=== PATIENT | female | born 1955 | race Hispanic/Latino ===

== ENCOUNTER 2017-12-21 08:16 | Emergency (ER) | payer OTHER ==
--- NOTE | 2017-12-21 09:40 | RAD REPORT ---
EXAM DESCRIPTION: RAD - Femur Right - 12/21/2017 9:14 am CLINICAL HISTORY: PAIN Fall COMPARISON: None FINDINGS: Right hip and right femur, multiple projections. No acute fracture or dislocation seen. No evidence of AVN.
--- NOTE | 2017-12-21 09:52 | ER ---
Nurse's Notes [facility] Name: Zaynab Winston Age: 62 yrs Sex: Female : 1955 Arrival Date: 12/21/2017 Time: 08:20 Bed 14 Private MD: Ezequiel De Los Santos E Diagnosis: Pain in right hip;Fall on same level from slipping, tripping and stumbling Presentation: 12/21 08:23 Presenting complaint: Patient states: mechanical fall from standing last night, pain in la1 right hip, pt ambulatory since injury. Denies LOC. Transition of care: patient was not received from another setting of care. Onset of symptoms was December 21, 2017. Risk Assessment: Do you want to hurt yourself or someone else? Patient reports no desire to harm self or others. Initial Sepsis Screen: Does the patient meet any 2 criteria? No. Patient's initial sepsis screen is negative. Does the patient have a suspected source of infection? No. Patient's initial sepsis screen is negative. Care prior to arrival: None. 08:23 Method Of Arrival: Wheelchair la1 08:23 Acuity: CHAS 3 la1 08:34 Mechanism of Injury: Fall from standing position. Trauma event details: Injury occurred tw2 in the [facility]. Trauma Activation: Not Applicable Physician: ED Physician; Name: ; Notified At: ; Arrived At: Physician: General Surgeon; Name: ; Notified At: ; Arrived At: Physician: Radiology; Name: ; Notified At: ; Arrived At: Physician: Respiratory; Name: ; Notified At: ; Arrived At: Physician: Lab; Name: ; Notified At: ; Arrived At: Historical: - Allergies: 08:24 PENICILLINS; la1 - PMHx: 08:24 Diabetes - NIDDM; High Cholesterol; Hypertension; la1 - Immunization history:: Adult Immunizations up to date. - Social history:: Smoking status: Patient/guardian denies using tobacco. - Immunization history: Last tetanus immunization:. - Ebola Screening: : No symptoms or risks identified at this time. Screenin:33 Abuse screen: Denies threats or abuse. Nutritional screening: No deficits noted. tw2 Tuberculosis screening: No symptoms or risk factors identified. Fall Risk None identified. Primary Survey: 08:33 A: Airway: patent. Breathing/Chest: Respiratory pattern:. Breathing/Chest: Respiratory tw2 pattern: regular, Respiratory effort: spontaneous, unlabored, Breath sounds: clear, bilaterally. Chest inspection: symmetrical rise and fall of the chest. Circulation: Heart tones present. Disability Alert. 09:23 Reassessment Airway Airway Patent Breathing/Chest Respiratory pattern Regular tw2 Respiratory effort Spontaneous Unlabored Breath sounds Clear Chest inspection Symmetrical Circulation Heart tones Present Temperature Warm Dry Disability Alert. Secondary Survey: 09:20 HEENT: Face Other appears to be abrasion noted to left cheek. Gastrointestinal: Abdomen tw2 is soft. : No signs and/or symptoms were reported regarding the genitourinary system. Musculoskeletal: Reports pain in pelvis and right hip and right low back and left low back pt is able to ambulate and weightbear. Assessment: 08:31 General: Appears in no apparent distress. well groomed, Behavior is calm, cooperative, tw2 appropriate for age. Pain: Complains of pain in left low back and right low back. Neuro: Level of Consciousness is awake, alert, obeys commands, Oriented to person, place, time, situation. Cardiovascular: Denies chest pain, shortness of breath, Heart tones S1 S2 Patient's skin is warm and dry. Respiratory: Airway is patent Respiratory effort is even, unlabored, Respiratory pattern is regular, symmetrical, Breath sounds are clear bilaterally. GI: No signs and/or symptoms were reported involving the gastrointestinal system. Abdomen is flat, Bowel sounds present X 4 quads. : No signs and/or symptoms were reported regarding the genitourinary system. EENT: No signs and/or symptoms were reported regarding the EENT system. Derm: appears to be an abrasion on left cheek bone. Musculoskeletal: Range of motion: intact in all extremities. 08:32 Reassessment: pt states she missed a step yesterday and fell backwards then fell tw2 forwards. 09:19 Reassessment: Patient appears in no apparent distress at this time. No changes from tw2 previously documented assessment. Patient and/or family updated on plan of care and expected duration. Pain level reassessed. Patient is alert, oriented x 3, equal unlabored respirations, skin warm/dry/pink. pt back from xray at this time. 10:02 Reassessment: Patient appears in no apparent distress at this time. No changes from tw2 previously documented assessment. Patient and/or family updated on plan of care and expected duration. Pain level reassessed. Patient is alert, oriented x 3, equal unlabored respirations, skin warm/dry/pink. Vital Signs: 08:24 Pulse 69; Resp 18; Temp 97.2(TE); Pulse Ox 98% on R/A; Weight 66.22 kg; Height 5 ft. 3 la1 in. (160.02 cm); Pain 8/10; 08:25 BP 197 / 74; la1 09:22 BP 186 / 79; Pulse 58; Resp 17; Pulse Ox 97% on R/A; tw2 10:02 BP 183 / 89; Pulse 77; Resp 17; Pulse Ox 99% on R/A; tw2 08:24 Body Mass Index 25.86 (66.22 kg, 160.02 cm) la1 Cale Coma Score: 08:33 Eye Response: spontaneous(4). Verbal Response: oriented(5). Motor Response: obeys tw2 commands(6). Total: 15. 09:22 Eye Response: spontaneous(4). Verbal Response: oriented(5). Motor Response: obeys tw2 commands(6). Total: 15. Trauma Score (Adult): 08:33 Eye Response: spontaneous(1); Verbal Response: oriented(1); Motor Response: obeys tw2 commands(2); Systolic BP: > 89 mm Hg(4); Respiratory Rate: 10 to 29 per min(4); Cale Score: 15; Trauma Score: 12 09:22 Eye Response: spontaneous(1); Verbal Response: oriented(1); Motor Response: obeys tw2 commands(2); Systolic BP: > 89 mm Hg(4); Respiratory Rate: 10 to 29 per min(4); Kenner Score: 15; Trauma Score: 12 ED Course: 08:20 Patient arrived in ED. mr 08:20 Ezequiel De Los Santos MD is Private Physician. mr 08:23 Triage completed. la1 08:24 Arm band placed on left wrist. la1 08:26 Janett Bustamante RN is Primary Nurse. tw2 08:30 Charl[facility] Ornelas [facility]-C [facility]. kb 08:30 Francisco Mcdonald MD is Attending Physician. kb 08:33 Placed in gown. Bed in low position. Side rails up X 1. Adult w/ patient. Cardiac tw2 monitor on. Pulse ox on. Sitter at bedside. Warm blanket given. 08:34 Patient maintains SpO2 saturation greater than 95% on room air. tw2 08:34 Thermoregulation: warm blanket given to patient. tw2 09:06 Hip Right 2 View XRAY In Process Unspecified. EDMS 09:06 Femur Right XRAY In Process Unspecified. EDMS 10:02 No provider procedures requiring assistance completed. Patient did not have IV access tw2 during this emergency room visit. Administered Medications: No medications were administered Intake: 09:22 PO: 0ml; Total: 0ml. tw2 Outcome: 09:52 Discharge ordered by . kb 10:03 Discharged to home via wheelchair, with family. tw2 10:03 Condition: stable 10:03 Patient's length of stay was not longer than 2 hours. 10:03 Discharge instructions given to patient, Instructed on discharge instructions, follow tw2 up and referral plans. Demonstrated understanding of instructions, follow-up care. 10:04 Patient left the ED. tw2 Signatures: Dispatcher [employer] EDOR Charlene Ornelas, DIOR WEINERP-Nessa Haney Carroll Huffman RN RN la1 Janett Bustamante RN RN tw2 Corrections: (The following items were deleted from the chart) 08:29 08:23 Acuity: CHAS 4 la1 la1
--- NOTE | 2017-12-21 09:52 | EDPHYS ---
Physician Documentation [facility] Name: Zaynab Winston Age: 62 yrs Sex: Female : 1955 Arrival Date: 12/21/2017 Time: 08:20 Bed 14 Private MD: Ezequiel De Los Santos E ED Physician Francisco Mcdonald HPI: 12/21 08:39 This 62 yrs old Female presents to ER via Wheelchair with complaints of Fall kb Injury. 08:39 Details of fall: The patient fell from an upright position, "getting out of car". kb Onset: The symptoms/episode began/occurred last night. Associated injuries: The patient sustained right hip and right quadriceps, painful injury. Severity of symptoms: At their worst the symptoms were mild, moderate, in the emergency department the symptoms are unchanged. The patient has not experienced similar symptoms in the past. The patient has not recently seen a physician. Pt tripped and fell when getting out of the car last night. Has been walking from couch to restroom without difficulty, but does have pain to right hip and femur. . Historical: - Allergies: 08:24 PENICILLINS; la1 - PMHx: 08:24 Diabetes - NIDDM; High Cholesterol; Hypertension; la1 - Immunization history:: Adult Immunizations up to date. - Social history:: Smoking status: Patient/guardian denies using tobacco. - Immunization history: Last tetanus immunization:. - Ebola Screening: : No symptoms or risks identified at this time. ROS: 08:37 Constitutional: Negative for fever, chills, and weight loss, Cardiovascular: Negative kb for chest pain, palpitations, and edema, Respiratory: Negative for shortness of breath, cough, wheezing, and pleuritic chest pain, Abdomen/GI: Negative for abdominal pain, nausea, vomiting, diarrhea, and constipation, Back: Negative for injury and pain, Skin: Negative for injury, rash, and discoloration, Neuro: Negative for headache, weakness, numbness, tingling, and seizure. 08:37 MS/extremity: Positive for injury or acute deformity, pain, tenderness, of the right hip and right quadriceps. Exam: 08:37 Constitutional: This is a well developed, well nourished patient who is awake, alert, kb and in no acute distress. Head/Face: Normocephalic, atraumatic. Chest/axilla: Normal chest wall appearance and motion. Nontender with no deformity. No lesions are appreciated. Cardiovascular: Regular rate and rhythm with a normal S1 and S2. No gallops, murmurs, or rubs. Normal PMI, no JVD. No pulse deficits. Respiratory: Lungs have equal breath sounds bilaterally, clear to auscultation and percussion. No rales, rhonchi or wheezes noted. No increased work of breathing, no retractions or nasal flaring. Abdomen/GI: Soft, non-tender, with normal bowel sounds. No distension or tympany. No guarding or rebound. No evidence of tenderness throughout. Skin: Warm, dry with normal turgor. Normal color with no rashes, no lesions, and no evidence of cellulitis. Neuro: Awake and alert, GCS 15, oriented to person, place, time, and situation. Cranial nerves II-XII grossly intact. Motor strength 5/5 in all extremities. Sensory grossly intact. Cerebellar exam normal. Normal gait. 08:37 Musculoskeletal/extremity: Extremities: grossly normal except: noted in the right hip: pain, tenderness, ROM: intact in all extremities, Circulation is intact in all extremities. Sensation intact. Weight bearing: able to fully bear weight, without difficulty. Vital Signs: 08:24 Pulse 69; Resp 18; Temp 97.2(TE); Pulse Ox 98% on R/A; Weight 66.22 kg; Height 5 ft. 3 la1 in. (160.02 cm); Pain 8/10; 08:25 BP 197 / 74; la1 09:22 BP 186 / 79; Pulse 58; Resp 17; Pulse Ox 97% on R/A; tw2 10:02 BP 183 / 89; Pulse 77; Resp 17; Pulse Ox 99% on R/A; tw2 08:24 Body Mass Index 25.86 (66.22 kg, 160.02 cm) la1 Cale Coma Score: 08:33 Eye Response: spontaneous(4). Verbal Response: oriented(5). Motor Response: obeys tw2 commands(6). Total: 15. 09:22 Eye Response: spontaneous(4). Verbal Response: oriented(5). Motor Response: obeys tw2 commands(6). Total: 15. Trauma Score (Adult): 08:33 Eye Response: spontaneous(1); Verbal Response: oriented(1); Motor Response: obeys tw2 commands(2); Systolic BP: > 89 mm Hg(4); Respiratory Rate: 10 to 29 per min(4); Turner Score: 15; Trauma Score: 12 09:22 Eye Response: spontaneous(1); Verbal Response: oriented(1); Motor Response: obeys tw2 commands(2); Systolic BP: > 89 mm Hg(4); Respiratory Rate: 10 to 29 per min(4); Cale Score: 15; Trauma Score: 12 MDM: 08:30 Patient medically screened. kb 08:39 Data reviewed: vital signs, nurses notes. Data interpreted: Pulse oximetry: on room air kb is 98 %. Interpretation: normal. 09:51 Counseling: I had a detailed discussion with the patient and/or guardian regarding: the kb historical points, exam findings, and any diagnostic results supporting the discharge/admit diagnosis, radiology results, the need for outpatient follow up, a family practitioner, to return to the emergency department if symptoms worsen or persist or if there are any questions or concerns that arise at home. 12/21 08:36 Order name: Hip Right 2 View XRAY kb 12/21 08:36 Order name: Femur Right XRAY; Complete Time: 09:40 kb Administered Medications: No medications were administered Disposition: 18:40 Co-signature as Attending Physician, Francisco Mcdonald MD available for consultation at ps1 all times. Disposition: 12/21/17 09:52 Discharged to Home. Impression: Pain in right hip, Fall on same level from slipping, tripping and stumbling. - Condition is Stable. - Discharge Instructions: Hip Pain. - Medication Reconciliation Form, Thank You Letter, Antibiotic Education, Prescription Opioid Use form. Signatures: Dispatcher [employer] EDVT Charlene Ornelas, YUNIORC PATHOLOGY TECHNICIAN-Carroll Carey RN RN la1 Janett Bustamante RN RN tw2 Francisco Mcdonald MD MD ps1 Corrections: (The following items were deleted from the chart) 10:04 09:52 12/21/2017 09:52 Discharged to Home. Impression: Pain in right hip; Fall on same tw2 level from slipping, tripping and stumbling. Condition is Stable. Forms are Medication Reconciliation Form, Thank You Letter, Antibiotic Education, Prescription Opioid Use. Follow up: Emergency Department; When: As needed; Reason: Worsening of condition. Follow up: Ezequiel De Los Santos; When: 2 - 3 days; Reason: Recheck today's complaints, Continuance of care, Re-evaluation by your physician. kb
--- NOTE | 2017-12-21 11:37 | RAD REPORT ---
EXAM DESCRIPTION: RAD - Hip Right 2 View - 12/21/2017 9:13 am CLINICAL HISTORY: PAIN Fall COMPARISON: None FINDINGS: Right hip and right femur, multiple projections. No acute fracture or dislocation seen. No evidence of AVN. If pain persists or progresses or the patient has difficulty with weight-bearing, MR imaging would be recommended.
== END 2017-12-21 10:04 | disposition home or self-care (01) ==
LOC: ER 08:16
DX: M25.551 Pain in right hip (principal); W18.39XA Other fall on same level, initial encounter; Y93.89 Activity, other specified; Y92.9 Unspecified place or not applicable; Z88.0 Allergy status to penicillin; I10 Essential (primary) hypertension
CPT/HCPCS: 99285

== ENCOUNTER 2018-03-13 17:37 | Emergency (ER) | payer OTHER ==
[2018-03-13] MEDS ORDERED: LABETALOL HCL 100 MG/20 ML ONE (18:18)
[2018-03-13 18:37] LABS: Absolute Lymphocytes (CBC) 1.8 K/uL (0.7-4.9); Absolute Monocytes 0.5 K/uL (0.1-1.3); Absolute Neutrophil 5.7 K/uL (1.8-8.0); Basophils % 0.4 % (0-1.3); Eosinophils % 1.2 % (0-4.4); Hematocrit 36.1 % (36.0-45.0); Lymphocytes % 21.9 % (15.3-44.8); MPV 8.3 fL (7.6-11.3); Monocytes % 5.9 % (3.3-12.3); RBC Red Blood Cell Count 4.31 M/uL (3.86-4.86)
[2018-03-13] MEDS ORDERED: ONDANSETRON 4 MG/2 ML VIAL ONE (18:37)
[2018-03-13] MEDS ORDERED: Nicardipine/NS 25 MG/250 ML KIT IV ONE (18:51)
--- NOTE | 2018-03-13 18:51 | RAD REPORT ---
EXAM DESCRIPTION: CT - Head Brain Wo Cont - 03/13/2018 6:35 pm CLINICAL HISTORY: HEADACHE Severe headache, hypertension COMPARISON: Chest Single View dated 03/13/2018 TECHNIQUE: All CT scans are performed using dose optimization technique as appropriate and may inclu de automated exposure control or mA/KV adjustment according to patient size. FINDINGS: A significant volume of subarachnoid acute hemorrhage is present in the region of the circ le Martinez and posterior fossa. Blood is seen extending and both sylvian fissures.Moderate distention of the ventricular system is present compatible with hydrocephalus. The paranasal sinuses and mastoids are clear. The calvarium is intact. IMPRESSION: Significant acute subarachnoid hemorrhage is present. Moderate hydrocephalus is noted. Findings were discussed with Dr. Deleon in the ER 6:45 p.m. 03/13/2018 by telephone.
[2018-03-13 18:52] LABS: ALT/SGPT 26 U/L (12-78); AST/SGOT 21 U/L (15-37); Albumin 3.9 g/dL (3.4-5.0); Alkaline Phosphatase 87 U/L (45-117); BUN Blood Urea Nitrogen 17 mg/dL (7-18); Bicarbonate 26 mmol/L (21-32); Bilirubin Direct < 0.1 mg/dL (0-0.2); Bilirubin Total 0.3 mg/dL (0.2-1.0); Glucose Level 181 mg/dL (74-106); NT PRO-BNP 73 pg/mL (<125); Potassium 3.5 mmol/L (3.5-5.1); Sodium Level 139 mmol/L (136-145); Troponin (Emerg Dept Use Only) < 0.02 ng/mL (0.0-0.045)
[2018-03-13] MEDS ORDERED: niMODipine 30 MG CAP PO ONE (19:02)
--- NOTE | 2018-03-13 19:10 | ER ---
Nurse's Notes [facility] Name: Zaynab Winston Age: 62 yrs Sex: Female : 1955 Arrival Date: 03/13/2018 Time: 17:41 Bed 27 Private MD: Diagnosis: Cognitive deficits following nontraumatic subarachnoid hemorrhage Presentation: 03/13 17:35 Presenting complaint: EMS states: pt states around 330pm today had a tense situation tw2 with her neighbor and she got stressed and now her blood pressure is up, originally was 240/136 upon our arrival, we gave 5mg IV Metoprolol at 1705, pt c/o headache, denies chest pain and SOB, gave 2nd dose of 5 mg IV Metoprolol at at 1726, arrival here it is 211/110, pt c/o headache and nauseousness, she vomited a total of 3 times for us, we gave 4mg Zofran IV, hx:: hypertension, diabetes. Transition of care: patient was not received from another setting of care. Onset of symptoms was March 13, 2018. Risk Assessment: Do you want to hurt yourself or someone else? Patient reports no desire to harm self or others. Initial Sepsis Screen: Does the patient meet any 2 criteria? No. Patient's initial sepsis screen is negative. Does the patient have a suspected source of infection? No. Patient's initial sepsis screen is negative. Care prior to arrival: IV initiated. 18 GA, in the left forearm, Glucose check: 246. 17:35 Method Of Arrival: EMS: [facility] tw2 17:35 Acuity: CHAS 2 ss Historical: - Allergies: 17:53 PENICILLINS; tw2 - Home Meds: 19:25 Metformin Oral [Active]; Metoprolol Tartrate Oral [Active]; losartan oral oral ss [Active]; amlodipine oral [Active]; alendronate oral oral [Active]; Levemir subcutaneous subcutaneous [Active]; - PMHx: 17:53 Diabetes - NIDDM; High Cholesterol; Hypertension; tw2 - Immunization history:: Adult Immunizations. - Social history:: Smoking status: . - Ebola Screening: : Patient denies travel to an Ebola-affected area in the 21 days before illness onset. Screenin:55 Abuse screen: Denies threats or abuse. Nutritional screening: No deficits noted. tw2 Tuberculosis screening: No symptoms or risk factors identified. Fall Risk None identified. Assessment: 17:54 General: Appears uncomfortable, Behavior is cooperative, appropriate for age. Pain: tw2 Complains of pain in "headache". Neuro: Level of Consciousness is awake, alert, obeys commands, Oriented to person, place, time, situation. Neuro: Reports headache. Cardiovascular: Denies chest pain, shortness of breath, Heart tones S1 S2 Patient's skin is warm and dry. Respiratory: Airway is patent Respiratory effort is even, unlabored, Respiratory pattern is regular, symmetrical, Breath sounds are clear bilaterally. GI: Abdomen is flat, Pt is actively vomiting Bowel sounds present X 4 quads. : No signs and/or symptoms were reported regarding the genitourinary system. EENT: No signs and/or symptoms were reported regarding the EENT system. Derm: No signs and/or symptoms reported regarding the dermatologic system. Musculoskeletal: Range of motion: intact in all extremities. 18:25 Reassessment: pt actively vomiting at this time, provider notified. tw2 19:05 Reassessment: Dr Deleon at bedside for discussion of findings and recommendations to bb daughter pt to be Life Flighted to [facility] for further evaluation and treatment. 19:15 Reassessment: pt c/o of headache Dr Deleon notified pt medicated see MAR. bb 19:27 Reassessment: pt is resting quietly, daughter at bedside, report given to Life Flight bb and Kuldeep Cleary RN at [facility]. Pt's IV intact, patent with fluids infusing. 19:36 Reassessment: [facility] crew at bedside for transport of pt. Pt is bb oriented x 4, resp unlabored, IV site intact with fluids infusing family at bedside. Vital Signs: 17:47 BP 230 / 106; Pulse 70; Resp 19; Temp 98.7(O); Pulse Ox 96% on R/A; Pain 10/10; tw2 18:25 BP 175 / 80; Pulse 71; Resp 16; Pulse Ox 96% on R/A; tw2 18:50 BP 155 / 92; Pulse 67; Resp 15; Pulse Ox 96% on R/A; tw2 19:00 BP 139 / 73; Pulse 67; Resp 23; Pulse Ox 92% on R/A; bb 19:10 BP 134 / 70; Pulse 69; Resp 24 S; Pulse Ox 92% on R/A; bb 19:20 BP 131 / 70; Pulse 68; Resp 20 S; Pulse Ox 98% on 2 lpm NC; bb 19:39 BP 144 / 66; Pulse 71; Resp 22 S; Pulse Ox 99% on 2 lpm NC; bb 17:47 Dr. Deleon notifed of pts BP and c/o headache and condition of actively vomiting. tw2 [place] Coma Score: 18:48 Eye Response: spontaneous(4). Verbal Response: oriented(5). Motor Response: obeys gs commands(6). Total: 15. 19:46 Eye Response: to voice(3). Verbal Response: oriented(5). Motor Response: obeys bb commands(6). Total: 14. ED Course: 17:41 Patient arrived in ED. tw2 17:41 Placed in gown. Bed in low position. personnel monitor on. Pulse ox on. NIBP on. Notified tw2 ED physician of vital signs. 17:41 Maintain EMS IV. Dressing intact. Good blood return noted. Site clean \\T\\ dry. Gauge \\T\\ tw 2 site: 18 g LEFT FA. 17:47 Triage completed. tw2 17:52 Janett Bustamante RN is Primary Nurse. tw2 17:53 Arm band placed on. tw2 18:03 Papi Deleon MD is Attending Physician. gs 18:39 CT Head Brain wo Cont In Process Unspecified. EDMS 18:39 Papi Deleon MD is Attending Physician. gs 19:00 Report given to KENDRA Guzman. tw2 19:05 XRAY Chest (1 view) In Process Unspecified. EDMS 19:33 No provider procedures requiring assistance completed. Patient transferred, IV remains bb in place. Administered Medications: 18:19 Drug: Labetalol 20 mg Route: IVP; Infused Over: 2 mins; Site: left forearm; tw2 18:28 Drug: Zofran 4 mg Route: IVP; Site: left forearm; tw2 19:00 Follow up: Response: No adverse reaction; Nausea is decreased tw2 18:45 Drug: niCARdipine (25mg/250ml) 5 mg/hr Route: IV; Rate: calculated rate; Site: left tw2 forearm; 18:59 Follow up: Rate change 7.5 mg/hr; at this time d/t bp 168/95 hr 67 tw2 19:47 Follow up: IV Status: Infusion continued upon transfer bb 18:55 Not Given (Duplicate Order): niMODipine 60 mg PO once; administer 1 hour before or 2 tw2 hours after meals 18:55 Drug: niMODipine 30 mg Route: PO; tw2 19:47 Follow up: Response: No adverse reaction bb 19:20 Drug: fentaNYL (PF) 25 mcg Route: IVP; Site: left forearm; bb 19:47 Follow up: Response: No adverse reaction bb Intake: Outcome: 19:09 ER care complete, transfer ordered by . gs 19:33 Instructed on the need for transfer. bb 19:45 Transferred by helicopter to [facility], Transfer form completed. X-rays sent bb w/ patient. 19:45 critical 19:48 Patient left the ED. bb Signatures: Dispatcher [employer] EDMS Megan Bolton RN RN Regina Benton RN RN Janett Bustamante RN RN tw2 Papi Deleon MD MD Corrections: (The following items were deleted from the chart) 17:53 17:47 BP 230 / 106; Pulse 70bpm; Resp 19bpm; Pulse Ox 96% RA; Pain 10/10; tw2 tw2 19:57 17:35 Acuity: CHAS 3 tw2
--- NOTE | 2018-03-13 19:10 | EDPHYS ---
Physician Documentation [facility] Name: Zaynab Winston Age: 62 yrs Sex: Female : 1955 Arrival Date: 03/13/2018 Time: 17:41 Bed 27 Private MD: ED Physician Papi Deleon HPI: 03/13 18:48 This 62 yrs old Female presents to ER via EMS with complaints of High Blood gs Pressure, Vomiting, Headache. 18:48 The patient has elevated blood pressure and discovered this at home. Onset: The gs symptoms/episode began/occurred acutely, gradually. 18:48 The patient complains of pain to the top of head and forehead. Onset: The gs symptoms/episode began/occurred acutely, suddenly. Associated signs and symptoms: Pertinent positives: vomiting, hypertension. Severity of symptoms: At its worst the pain was incapacitating, in the emergency department the pain is unchanged. The patient has not experienced similar symptoms in the past. Historical: - Allergies: 17:53 PENICILLINS; tw2 - Home Meds: 19:25 Metformin Oral [Active]; Metoprolol Tartrate Oral [Active]; losartan oral oral ss [Active]; amlodipine oral [Active]; alendronate oral oral [Active]; Levemir subcutaneous subcutaneous [Active]; - PMHx: 17:53 Diabetes - NIDDM; High Cholesterol; Hypertension; tw2 - Immunization history:: Adult Immunizations. - Social history:: Smoking status: . - Ebola Screening: : Patient denies travel to an Ebola-affected area in the 21 days before illness onset. ROS: 18:48 All other systems are negative. gs Exam: 18:48 Head/Face: Normocephalic, atraumatic. Eyes: Pupils equal round and reactive to light, gs extra-ocular motions intact. Lids and lashes normal. Conjunctiva and sclera are non-icteric and not injected. Cornea within normal limits. Periorbital areas with no swelling, redness, or edema. ENT: Nares patent. No nasal discharge, no septal abnormalities noted. Tympanic membranes are normal and external auditory canals are clear. Oropharynx with no redness, swelling, or masses, exudates, or evidence of obstruction, uvula midline. Mucous membranes moist. Neck: Trachea midline, no thyromegaly or masses palpated, and no cervical lymphadenopathy. Supple, full range of motion without nuchal rigidity, or vertebral point tenderness. No Meningismus. Chest/axilla: Normal chest wall appearance and motion. Nontender with no deformity. No lesions are appreciated. 18:48 Respiratory: Lungs have equal breath sounds bilaterally, clear to auscultation and percussion. No rales, rhonchi or wheezes noted. No increased work of breathing, no retractions or nasal flaring. Abdomen/GI: Soft, non-tender, with normal bowel sounds. No distension or tympany. No guarding or rebound. No evidence of tenderness throughout. Back: No spinal tenderness. No costovertebral tenderness. Full range of motion. Skin: Warm, dry with normal turgor. Normal color with no rashes, no lesions, and no evidence of cellulitis. MS/ Extremity: Pulses equal, no cyanosis. Neurovascular intact. Full, normal range of motion. 18:48 Constitutional: The patient appears alert, awake. 18:48 Cardiovascular: Rate: tachycardic, Rhythm: regular, Pulses: no pulse deficits are appreciated. 18:48 Neuro: Orientation: to person, place, time, situation, Cranial nerves: CN II- XII are normal as tested, Motor: moves all fours, strength is normal, Sensation: pin prick testing is normal. Vital Signs: 17:47 BP 230 / 106; Pulse 70; Resp 19; Temp 98.7(O); Pulse Ox 96% on R/A; Pain 10/10; tw2 18:25 BP 175 / 80; Pulse 71; Resp 16; Pulse Ox 96% on R/A; tw2 18:50 BP 155 / 92; Pulse 67; Resp 15; Pulse Ox 96% on R/A; tw2 19:00 BP 139 / 73; Pulse 67; Resp 23; Pulse Ox 92% on R/A; bb 19:10 BP 134 / 70; Pulse 69; Resp 24 S; Pulse Ox 92% on R/A; bb 19:20 BP 131 / 70; Pulse 68; Resp 20 S; Pulse Ox 98% on 2 lpm NC; bb 19:39 BP 144 / 66; Pulse 71; Resp 22 S; Pulse Ox 99% on 2 lpm NC; bb 17:47 Dr. Deleon notifed of pts BP and c/o headache and condition of actively vomiting. tw2 [place] Coma Score: 18:48 Eye Response: spontaneous(4). Verbal Response: oriented(5). Motor Response: obeys gs commands(6). Total: 15. 19:46 Eye Response: to voice(3). Verbal Response: oriented(5). Motor Response: obeys bb commands(6). Total: 14. MDM: 18:39 Patient medically screened. gs 18:48 Differential diagnosis: cerebral vascular accident, hypertensive headache, neoplasm, gs subarachnoid bleed. Data reviewed: vital signs, nurses notes. Counseling: I had a detailed discussion with the patient and/or guardian regarding: the historical points, exam findings, and any diagnostic results supporting the discharge/admit diagnosis. 03/13 18:04 Order name: Basic Metabolic Panel 03/13 18:04 Order name: CBC with Diff 03/13 18:04 Order name: LFT's 03/13 18:04 Order name: Magnesium 03/13 18:04 Order name: NT PRO-BNP 03/13 18:04 Order name: PT-INR 03/13 18:04 Order name: Troponin (emerg Dept Use Only) 03/13 18:04 Order name: XRAY Chest (1 view) 03/13 18:04 Order name: CT Head Brain wo Cont 03/13 18:04 Order name: EKG; Complete Time: 18:05 03/13 18:04 Order name: Cardiac monitoring; Complete Time: 18:24 03/13 18:04 Order name: EKG - Nurse/Tech; Complete Time: 18:24 03/13 18:04 Order name: IV Saline Lock; Complete Time: 18:25 03/13 18:04 Order name: Labs collected and sent; Complete Time: 18:25 03/13 18:04 Order name: O2 Per Protocol; Complete Time: 18:25 03/13 18:04 Order name: O2 Sat Monitoring; Complete Time: 18:24 Administered Medications: 18:19 Drug: Labetalol 20 mg Route: IVP; Infused Over: 2 mins; Site: left forearm; tw2 18:28 Drug: Zofran 4 mg Route: IVP; Site: left forearm; tw2 19:00 Follow up: Response: No adverse reaction; Nausea is decreased tw2 18:45 Drug: niCARdipine (25mg/250ml) 5 mg/hr Route: IV; Rate: calculated rate; Site: left tw2 forearm; 18:59 Follow up: Rate change 7.5 mg/hr; at this time d/t bp 168/95 hr 67 tw2 19:47 Follow up: IV Status: Infusion continued upon transfer bb 18:55 Not Given (Duplicate Order): niMODipine 60 mg PO once; administer 1 hour before or 2 tw2 hours after meals 18:55 Drug: niMODipine 30 mg Route: PO; tw2 19:47 Follow up: Response: No adverse reaction bb 19:20 Drug: fentaNYL (PF) 25 mcg Route: IVP; Site: left forearm; bb 19:47 Follow up: Response: No adverse reaction bb Disposition: 03/13/18 19:09 Transfer ordered to [facility]. 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 - Reason for transfer: Higher level of care. - Accepting physician is day. - Condition is Stable. - Problem is new. - Symptoms are unchanged. Critical care time excluding procedures: 18:48 Critical care time: Bedside Care: 10 minutes, Consultation: 10 minutes, Family gs Intervention: 10 minutes. Total time: 30 minutes Signatures: Dispatcher [employer] Megan Luo RN RN bb Regina Benton RN RN Janett Bustamante RN RN tw2 Papi Deleon MD MD Corrections: (The following items were deleted from the chart) 19:48 19:09 03/13/2018 19:09 Transfer ordered to [facility]. 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 Reason for transfer: Higher level of care. Accepting physician is day. Condition is Stable. Problem is new. Symptoms are unchanged. gs
[2018-03-13 19:11] LABS: Protime INR 0.97
--- NOTE | 2018-03-13 19:13 | RAD REPORT ---
EXAM DESCRIPTION: RAD - Chest Single View - 03/13/2018 7:05 pm CLINICAL HISTORY: MALAISE Chest pain. COMPARISON: No comparisons FINDINGS: Portable technique limits examination quality. Mild asymmetric interstitial pulmonary edema is present, greater on the left. The heart is upper limi t normal in size. No displaced fractures.Hardware plate is present cervical spine.
[2018-03-13] MEDS ORDERED: FENTANYL CITR 100 MCG/2 ML ONE (19:28)
--- NOTE | 2018-03-14 07:58 | EKG ---
Test Date: 2018-03-13 Test Time: 18:12:[address] Production: TANA MEASUREMENT RESULTS: Intervals: Rate: 62 CO: 154 QRSD: 88 QT: 484 QTc: 491 [place]: P: 46 CO: 154 QRS: 11 T: 74 INTERPRETIVE STATEMENTS: Normal sinus rhythm Prolonged QT Abnormal ECG No previous ECG available for comparison Electronically Signed On 03-14-18 07:58:09 ADMINISTRATIVE SERVICES DIRECTOR by Addison Barraza
[2018-03-14] MEDS ORDERED: NS 0.9% VIAL 0 ML ONE (09:57)
[2018-03-14] MEDS ORDERED: BALANCED SALT IRRIG PLAIN 500 ML BTL IRR ONE (09:58)
[2018-03-14] MEDS ORDERED: DUOVISC 1 KIT OPTH ONE (09:58)
[2018-03-14] MEDS ORDERED: EPINEPHRINE/PF 1 MG/ML AMP ONE (09:58)
[2018-03-14] MEDS ORDERED: MOXIFLOXACIN HCL 10 DROPS/ML **OR USE OPTH ONE (09:58)
== END 2018-03-13 19:48 | disposition short-term general hospital (02) ==
LOC: ER 17:37
DX: I60.9 Nontraumatic subarachnoid hemorrhage, unspecified (principal); R41.89 Other symptoms and signs involving cognitive functions and awareness; I10 Essential (primary) hypertension; E78.00 Pure hypercholesterolemia, unspecified; E11.9 Type 2 diabetes mellitus without complications; Z88.0 Allergy status to penicillin
CPT/HCPCS: 36415; 70450; 71045; 80048; 80076; 83735; 83880; 84484; 85025; 85610; 93005; 96365; 96375; 99285; J2405; J3010; J0171

== ENCOUNTER 2023-06-27 20:25 | Emergency (ER) | payer OTHER ==
[2023-06-27] MEDS ORDERED: IBUPROFEN 400 MG TAB ONE (21:04)
[2023-06-27] MEDS ORDERED: IBUPROFEN 200 MG TAB PO ONE (21:04)
--- NOTE | 2023-06-27 21:29 | RAD REPORT ---
EXAM DESCRIPTION: CT - Head Brain Wo Cont - 06/27/2023 9:18 pm CLINICAL HISTORY: Head injury status post fall COMPARISON: 2019 TECHNIQUE: Computed axial tomography of the head was obtained. IV contrast was not requested. All CT scans are performed using dose optimization technique as appropriate and may include automated exposure control or mA/KV adjustment according to patient size. FINDINGS: An intracranial bleed is not seen The ventricles are normal in caliber No extra-axial fluid collection is noted. Mild gliosis right frontal lobe. Mild low-density areas periventricular, deep subcortical white matte r probably ischemic changes secondary to small vessel disease. Mild scalp swelling. Fluid within the sinuses/ mastoids is not seen. IMPRESSION: No acute intracranial abnormality is seen If patient's symptoms persist MRI of the brain would be recommended
--- NOTE | 2023-06-27 22:18 | RAD REPORT ---
EXAM DESCRIPTION: RAD - Ankle Left 3 View -06/27/2023 9:58 pm CLINICAL HISTORY: Left ankle pain status post injury FINDINGS: No fracture or dislocation is seen.
--- NOTE | 2023-06-27 22:24 | RAD REPORT ---
EXAM DESCRIPTION: RAD - Foot Left 3 View - 06/27/2023 9:58 pm CLINICAL HISTORY: Left Foot pain FINDINGS: Cortical irregularity base of the second metatarsal probably is not significant. This shou ld be correlated clinically. If the patient has significant pain in this region to suggest a fracture CT could be obtained Otherwise, no fracture or dislocation
--- NOTE | 2023-06-27 22:35 | ER ---
Nurse's Notes [facility] Name: Zaynab Winston Age: 67 yrs Sex: Female : 1955 Arrival Date: 06/27/2023 Time: 20:25 Bed 14 Private MD: Diagnosis: Unspecified injury of head, initial encounter;Sprain of unspecified ligament of left ankle Presentation: 06/26 20:37 Chief complaint: Patient states: Stumbled, twisted left ankle and fell onto floor nj1 hitting head, no LOC, does not take any blood thinners. 20:37 Coronavirus screen: Vaccine status: Patient reports receiving the 2nd dose of the covid nj1 vaccine. Ebola Screen: Patient denies travel to an Ebola-affected area in the 21 days before illness onset. Initial Sepsis Screen: Does the patient meet any 2 criteria? No. Patient's initial sepsis screen is negative. Does the patient have a suspected source of infection? No. Patient's initial sepsis screen is negative. Risk Assessment: Do you want to hurt yourself or someone else? Patient reports no desire to harm self or others. Onset of symptoms was June 27, 2023. 20:37 Method Of Arrival: Ambulatory [facility] 20:37 Acuity: CHAS 3 nj1 Historical: - Allergies: 20:46 PENICILLINS; nj1 - PMHx: 20:46 Diabetes - NIDDM; High Cholesterol; Hypertension; nj1 - Immunization history:: Client reports receiving the 2nd dose of the Covid vaccine. - Immunization history: Last tetanus immunization: unknown. - Infectious Disease History:: Denies. - Social history:: Smoking status: Patient denies any tobacco usage or history of. - Family history:: not pertinent. Screenin:59 [facility] ED Fall Risk Assessment (Adult) History of falling in the last 3 months, ha1 including since admission Yes- single mechanical fall (1 pt) Confusion or Disorientation No (0 pts) Intoxicated or Sedated No (0 pts) Impaired Gait Yes (1 pt) Mobility Assist Device Used Yes (1 pt) Altered Elimination No (0 pt) Score/Fall Risk Level 3 or more points = High Risk Oriented to surroundings, Maintained a safe environment, Educated pt \T\ family on fall prevention, incl call for assistance when getting out of bed, Hourly rounding (assess needs \T\ fall precautionary measures) done. Abuse screen: Denies threats or abuse. Denies injuries from another. Nutritional screening: No deficits noted. Tuberculosis screening: No symptoms or risk factors identified. Primary Survey: 22:40 NO uncontrolled hemorrhage observed. Breathing/Chest: Spontaneous respiratory effort, ha1 equal unlabored respirations, breath sounds clear bilaterally, regular pattern, symmetrical chest rise and fall. Respiratory effort: spontaneous. Circulation: No external hemorrhage present. Regular and strong central pulse, skin warm/dry/normal color. Disability Pupils are equal, round, reactive to light and accommodation. Exposure/Environment: All clothing and personal items were removed. Forensic evidence collection is not deemed to be indicated at this time. Items placed in patient belonging bag. There is no evidence of uncontrolled external bleeding. Assessment: 20:37 General: Appears uncomfortable, Behavior is calm, cooperative. Pain: Complains of pain ha1 in back of head and left foot Pain does not radiate. Pain currently is 7 out of 10 on a pain scale. Quality of pain is described as aching. Neuro: Level of Consciousness is awake, alert, obeys commands, Oriented to person, place, time, situation. Cardiovascular: Patient's skin is warm and dry. Respiratory: Airway is patent Respiratory effort is even, unlabored, Respiratory pattern is regular, symmetrical. GI: No signs and/or symptoms were reported involving the gastrointestinal system. : No signs and/or symptoms were reported regarding the genitourinary system. Derm: Skin is pink, warm \T\ dry. Musculoskeletal: Reports pain in left foot and back of head. 21:30 Reassessment: Patient and/or family updated on plan of care and expected duration. Pain ha1 level reassessed. Patient is alert, oriented x 3, equal unlabored respirations, skin warm/dry/pink. 22:30 Reassessment: Patient and/or family updated on plan of care and expected duration. Pain ha1 level reassessed. Patient is alert, oriented x 3, equal unlabored respirations, skin warm/dry/pink. Vital Signs: 20:37 BP 215 / 96; Pulse 78; Resp 16; Temp 97.3; Pulse Ox 100% on R/A; Weight 58.97 kg; nj1 Height 5 ft. 2 in. ; 21:02 BP 162 / 74; Pulse 71; Resp 17 S; Pulse Ox 100% on R/A; ha1 22:00 BP 167 / 74; Pulse 68; Resp 17 S; Pulse Ox 98% on R/A; ha1 22:30 BP 158 / 85; Pulse 60; Resp 17 S; Pulse Ox 98% on R/A; ha1 20:37 Body Mass Index 23.78 (58.97 kg, 157.48 cm) nj1 Cale Coma Score: 21:15 Eye Response: spontaneous(4). Motor Response: obeys commands(6). Verbal Response: ha1 oriented(5). Total: 15. 06/27 01:18 Eye Response: spontaneous(4). Motor Response: obeys commands(6). Verbal Response: sp4 oriented(5). Total: 15. ED Course: 06/26 20:29 Patient arrived in ED. ra3 20:33 Wenceslao Brannon MD is Attending Physician. sp4 20:37 Patient has correct armband on for positive identification. Bed in low position. Call ha1 light in reach. Side rails up X 1. Side rails up X2. 20:45 Opal Sr RN is Primary Nurse. ha1 20:46 Triage completed. nj1 20:46 Arm band placed on. nj1 21:19 CT Head Brain wo Cont In Process Unspecified. EDMS 21:59 Foot Left 3 View XRAY In Process Unspecified. EDMS 21:59 Ankle Left 3 View XRAY In Process Unspecified. EDMS 22:42 Ortho shoe applied to left foot. oe 23:00 Provided Education on: follow ups . ha1 23:00 O2 via room air. ha1 23:00 Patient did not have IV access during this emergency room visit. ha1 23:01 No provider procedures requiring assistance completed. ha1 Administered Medications: 21:06 Drug: Ibuprofen PO 600 mg PO once Route: PO; ha1 22:00 Follow up: Response: No adverse reaction; Marked relief of symptoms; Pain is decreased ha1 Medication: 23:00 VIS not applicable for this client. ha1 Outcome: 22:34 Discharge ordered by . sp4 23:00 Condition: stable ha1 23:00 Discharged to home via wheelchair, with family, ha1 23:00 Discharge instructions given to patient, family, Instructed on discharge instructions, follow up and referral plans. Demonstrated understanding of instructions, follow-up care, 23:01 Patient left the ED. ha1 Signatures: Dispatcher [employer] EDMS Beau Mcfadden Heidy, RN RN ha1 Wenceslao Brannon MD MD sp4 Nighat Brandt RN RN nj1 Le Rogers ra3
--- NOTE | 2023-06-27 22:35 | EDPHYS ---
Physician Documentation [facility] Name: Zaynab Winston Age: 67 yrs Sex: Female : 1955 Arrival Date: 06/27/2023 Time: 20:25 Bed 14 Private MD: ED Physician Wenceslao Brannon HPI: 06/26 20:33 This 67 yrs old Female presents to ER via Unassigned with complaints of Fall sp4 Injury, Head Injury-Adult. 06/27 01:18 7-year-old female presents with acute head injury associated with recent fall also pain sp4 in the left ankle associated with a recent stumbling.. Historical: - Allergies: 06/26 20:46 PENICILLINS; nj1 - PMHx: 20:46 Diabetes - NIDDM; High Cholesterol; Hypertension; nj1 - Immunization history:: Client reports receiving the 2nd dose of the Covid vaccine. - Immunization history: Last tetanus immunization: unknown. - Infectious Disease History:: Denies. - Social history:: Smoking status: Patient denies any tobacco usage or history of. - Family history:: not pertinent. ROS: 06/27 01:18 Constitutional: Negative for fever, chills, and weight loss, positive headache, sp4 positive left ankle pain All other systems are negative, Exam: 01:18 Constitutional: This is a well developed, well nourished patient who is awake, alert, sp4 and in no acute distress. Head/Face: Normocephalic, atraumatic. Eyes: Pupils equal round and reactive to light, extra-ocular motions intact. Lids and lashes normal. Conjunctiva and sclera are not injected. Cornea within normal limits. Periorbital areas with no swelling, redness, or edema. ENT: Nares patent. No nasal discharge, no septal abnormalities noted. Tympanic membranes are normal and external auditory canals are clear. Oropharynx with no redness, swelling, or masses, exudates, or evidence of obstruction, uvula midline. Mucous membranes moist. Neck: Trachea midline, no thyromegaly or masses palpated, and no cervical lymphadenopathy. Supple, full range of motion without nuchal rigidity, or vertebral point tenderness. Chest/axilla: Normal chest wall appearance and motion. Nontender with no deformity. No lesions are appreciated. Cardiovascular: Regular rate and rhythm with a normal S1 and S2. No gallops, murmurs, or rubs. Normal PMI, no JVD. No pulse deficits. Respiratory: Lungs have equal breath sounds bilaterally, clear to auscultation and percussion. No rales, rhonchi or wheezes noted. No increased work of breathing, no retractions or nasal flaring. Abdomen/GI: Soft, with normal bowel sounds. No distension or tympany. No guarding or rebound. No evidence of tenderness throughout. Back: No spinal tenderness. No costovertebral tenderness. Skin: Warm, dry with normal turgor. Normal color with no rashes, no lesions, and no evidence of cellulitis. MS/ Extremity: Pulses equal, no cyanosis. Neurovascular intact. Full, normal range of motion. Neuro: Awake and alert, GCS 15, oriented to person, place, time, and situation. Cranial nerves II-XII grossly intact. Motor strength 5/5 in all extremities. Sensory grossly intact. Psych: Awake, alert, with orientation to person, place and time. Behavior, mood, and affect are within normal limits Vital Signs: 06/26 20:37 BP 215 / 96; Pulse 78; Resp 16; Temp 97.3; Pulse Ox 100% on R/A; Weight 58.97 kg; nj1 Height 5 ft. 2 in. ; 21:02 BP 162 / 74; Pulse 71; Resp 17 S; Pulse Ox 100% on R/A; ha1 22:00 BP 167 / 74; Pulse 68; Resp 17 S; Pulse Ox 98% on R/A; ha1 22:30 BP 158 / 85; Pulse 60; Resp 17 S; Pulse Ox 98% on R/A; ha1 20:37 Body Mass Index 23.78 (58.97 kg, 157.48 cm) nj1 Cale Coma Score: 21:15 Eye Response: spontaneous(4). Motor Response: obeys commands(6). Verbal Response: ha1 oriented(5). Total: 15. 06/27 01:18 Eye Response: spontaneous(4). Motor Response: obeys commands(6). Verbal Response: sp4 oriented(5). Total: 15. MDM: 06/26 21:05 Patient medically screened. sp4 22:03 ED course: EXAM DESCRIPTION: CT - Head Brain Wo Cont - 06/27/2023 9:18 pm CLINICAL sp4 HISTORY: Head injury status post fall COMPARISON: 2018 TECHNIQUE: Computed axial tomography of the head was obtained. IV contrast was not requested. All CT scans are performed using dose optimization technique as appropriate and may include automated exposure control or mA/KV adjustment according to patient size. FINDINGS: An intracranial bleed is not seen The ventricles are normal in caliber No extra-axial fluid collection is noted. Mild gliosis right frontal lobe. Mild low-density areas periventricular, deep subcortical white matter probably ischemic changes secondary to small vessel disease. Mild scalp swelling. Fluid within the sinuses/ mastoids is not seen. IMPRESSION: No acute intracranial abnormality is seen If patient's symptoms persist MRI of the brain would be recommended. 22:20 ED course: EXAM DESCRIPTION: CT - Head Brain Wo Cont - 06/27/2023 9:18 pm CLINICAL sp4 HISTORY: Head injury status post fall COMPARISON: 2018 TECHNIQUE: Computed axial tomography of the head was obtained. IV contrast was not requested. All CT scans are performed using dose optimization technique as appropriate and may include automated exposure control or mA/KV adjustment according to patient size. FINDINGS: An intracranial bleed is not seen The ventricles are normal in caliber No extra-axial fluid collection is noted. Mild gliosis right frontal lobe. Mild low-density areas periventricular, deep subcortical white matter probably ischemic changes secondary to small vessel disease. Mild scalp swelling. Fluid within the sinuses/ mastoids is not seen. IMPRESSION: No acute intracranial abnormality is seen If patient's symptoms persist MRI of the brain would be recommended . 22:21 ED course: EXAM DESCRIPTION: RAD - Ankle Left 3 View -06/27/2023 9:58 pm CLINICAL sp4 HISTORY: Left ankle pain status post injury FINDINGS: No fracture or dislocation is seen. . 06/27 01:18 Differential diagnosis: abrasion, closed head injury, contusion, fracture, laceration. sp4 Data reviewed: vital signs, nurses notes, radiologic studies, CT scan, plain films. ED course: EXAM DESCRIPTION: RAD - Foot Left 3 View - 06/27/2023 9:58 pm CLINICAL HISTORY: Left Foot pain FINDINGS: Cortical irregularity base of the second metatarsal probably is not significant. This should be correlated clinically. If the patient has significant pain in this region to suggest a fracture CT could be obtained Otherwise, no fracture or dislocation. 06/26 20:52 Order name: CT Head Brain wo Cont; Complete Time: 21:59 sp4 06/26 20:53 Order name: Foot Left 3 View XRAY; Complete Time: 20:33 sp4 06/26 20:53 Order name: Ankle Left 3 View XRAY; Complete Time: 22:23 sp4 06/26 22:31 Order name: Orthopedic shoe: Left foot and ankle Ortho boot please; Complete Time: 22:42sp4 Administered Medications: 06/26 21:06 Drug: Ibuprofen PO 600 mg PO once Route: PO; ha1 22:00 Follow up: Response: No adverse reaction; Marked relief of symptoms; Pain is decreased ha1 Disposition Summary: 06/27/23 22:34 Discharge Ordered Notes: Ibuprofen 400 mg every 6 hours PRN headache Location: Home sp4 Problem: new sp4 Symptoms: have improved sp4 Condition: Stable sp4 Diagnosis - Unspecified injury of head, initial encounter sp4 - Sprain of unspecified ligament of left ankle sp4 Followup: sp4 - With: Private Physician - When: 7 - 10 days - Reason: Recheck today's complaints Discharge Instructions: - Discharge Summary Sheet sp4 - Head Injury, Adult, [id number] sp4 Forms: - Patient Portal Instructions sp4 Signatures: Dispatcher [employer] Opal Clark RN RN ha1 Wenceslao Brannon MD MD sp4 Nighat Brandt RN RN nj1
[2023-06-27 23:16] VITALS: BP 158/85; TEMP 97.3; O2SAT 98
== END 2023-06-27 23:01 | disposition home or self-care (01) ==
LOC: ER 20:25
DX: S09.90XA Unspecified injury of head, initial encounter (principal); S93.402A Sprain of unspecified ligament of left ankle, initial encounter; W19.XXXA Unspecified fall, initial encounter; Z88.0 Allergy status to penicillin
CPT/HCPCS: 70450; 99284

== ENCOUNTER 2024-02-22 10:22 | Emergency (ER) | payer OTHER ==
--- NOTE | 2024-02-22 11:35 | RAD REPORT ---
EXAMINATION: ONE VIEW CHEST XR CLINICAL INDICATION: COUGH TECHNIQUE: Frontal chest projection is submitted. Examination is limited by patient positioning and t echnique. COMPARISON: 03/13/2018 FINDINGS: The lungs are well inflated and clear. The heart is normal in size. No displaced fractures identified . Cervical hardware plate. IMPRESSION: No acute intrathoracic abnormalities.
[2024-02-22] MEDS ORDERED: NA CHLORIDE 0.9% 2,000 ML ONE (12:02)
[2024-02-22] MEDS ORDERED: FAMOTIDINE 20 MG/2 ML VIAL IV ONE (12:02)
[2024-02-22] MEDS ORDERED: CEFTRIAXONE 1000 MG/VIAL ONE (12:02)
--- NOTE | 2024-02-22 12:04 | RAD REPORT ---
EXAM: CT brain without contrast HISTORY: PAIN COMPARISON: None TECHNIQUE: Multiple contiguous axial images were obtained and a CT of the brain without contrast. Sag ittal and coronal reformats were performed. One or more of the following dose reduction techniques were used: Automated exposure control, adjust ment of the mA and/or kV according to patient size, and/or iterative reconstruction. FINDINGS: No evidence of hydrocephalus, intracranial hemorrhage, or extra-axial fluid collection. Mild brain atrophy with mild periventricular and deep white matter chronic microvascular ischemic ch anges present. No evidence of midline shift or areas of brain edema. The calvarium is intact. The visualized paranasal sinuses and mastoid air cells are essentially clear . IMPRESSION: No evidence of acute intracranial abnormality. EXAM: CT of the cervical spine without contrast HISTORY: Neck pain, injury PAIN TECHNIQUE: Multiple contiguous axial images were obtained in a CT of the cervical spine without contr ast. Sagittal and coronal reformats were performed. FINDINGS: The vertebral bodies demonstrate normal height and alignment. No evidence of acute fracture or subluxation.. Evidence of previous anterior fusion spanning C5-C7. No prevertebral soft tissue swelling is seen. The posterior facets are well aligned. Normal alignment of the skull base with the cervical spine is seen. The lung apices are unremarkable. IMPRESSION: No evidence of acute osseous abnormality of the cervical spine.
--- NOTE | 2024-02-22 12:07 | RAD REPORT ---
EXAM: CT CHEST, ABDOMEN AND PELVIS WITHOUT CONTRAST CLINICAL INDICATION: pain TECHNIQUE: CT chest, abdomen and pelvis was performed without contrast, as per department protocol. A xial, sagittal and coronal reconstructions were obtained. One or more of the following dose reduction techniques were used: Automated exposure control, adjustment of the mA and/or kV according to patient size, and/or iterative reconstruction. Unless otherwise specified, incidental findings do not require dedicated imaging follow-up. Examination is limited by the lack of intravenous contrast material. COMPARISON: No prior exam. FINDINGS: LUNGS: No evidence of airspace or interstitial process. No nodules. PLEURA: No pleural effusion. No pneumothorax. MEDIASTINUM AND LYMPH NODES: No mediastinal mass or fluid collection. Normal size mediastinal, hilar, and axillary lymph nodes. OSSEOUS STRUCTURES AND CHEST WALL: Intact. LIVER: Normal in size and contour. No focal lesion or biliary dilatation. Grossly unremarkable gallbl adder. PANCREAS: No mass, ductal dilation, or luis-pancreatic fluid. SPLEEN: Normal size. No focal lesion. ADRENALS: Normal; no mass. KIDNEYS: Normal size and contour. No hydronephrosis. URINARY BLADDER: Normal contour. GASTROINTESTINAL TRACT: No bowel obstruction, free air, significant free fluid or abscess. APPENDIX: Normal appendix. LYMPH NODES: No lymphadenopathy. MUSCULOSKELETAL: Posterior fusion hardware spine. OTHER: IMPRESSION: No acute or significant abnormalities seen in the chest, abdomen or pelvis.
[2024-02-22 12:08] LABS: Absolute Lymphocytes (CBC) 0.5 K/uL (0.7-4.9); Absolute Monocytes 0.5 K/uL (0.1-1.3); Absolute Neutrophil 5.9 K/uL (1.8-8.0); Basophils % 0.2 % (0-1.3); Hematocrit 37.7 % (36.0-45.0); Hemoglobin 12.1 g/dL (12.0-15.0); Lymphocytes % 7.1 % (15.3-44.8); MCH 27.3 pg (27.0-35.0); MCHC 32.1 g/dL (32.0-36.0); MCV 85.2 fL (80-100); MPV 7.2 fL (7.6-11.3); Monocytes % 7.2 % (3.3-12.3); Neutrophils % 85.5 % (41.7-73.7); Platelets 220 thou/uL (152-406); RBC Red Blood Cell Count 4.43 M/uL (3.86-4.86); Red Cell Distribution Width 16.4 % (12.1-15.2)
[2024-02-22 12:16] LABS: PT Prothrombin Time 12.4 SECONDS (9.4-12.5); Protime INR 1.11
[2024-02-22 12:31] LABS: AST/SGOT 15 U/L (15-37); Albumin 3.5 g/dL (3.4-5.0); Albumin/Globulin Ratio 0.9 (1.1-1.8); Alkaline Phosphatase 68 U/L (45-117); Anion Gap 9.5 mEq/L (5.0-15.0); BUN Blood Urea Nitrogen 10 mg/dL (7-18); Bicarbonate 26 mEq/L (21-32); Bilirubin Total 0.4 mg/dL (0.2-1.0); Globulin 3.8 g/dL (2.3-3.5); Glomerular Filtration Rate 88 ml/min (=/>90); Glucose Level 116 mg/dL (74-106); Magnesium 1.7 mg/dL (1.6-2.4); NT PRO-BNP 806 pg/mL (<125); Potassium 3.5 mEq/L (3.5-5.1); Protein, Total 7.3 g/dL (6.4-8.2); Sodium Level 136 mEq/L (136-145); Troponin High Sensitivity 40.3 pg/mL (<58.9)
[2024-02-22 12:32] LABS: ALT/SGPT < 14 U/L (13-56); Bilirubin Direct < 0.2 mg/dL (0-0.2); Bilirubin Indirect, Calculated 0.2 mg/dL (0.2-0.8)
[2024-02-22 12:33] LABS: SARS-CoV-2 Antigen CONTROL BLUE LINE VIS/BG OK; SARS-CoV-2 Antigen Rapid Res Negative (Negative)
[2024-02-22] MEDS ORDERED: ACETAMINOPHEN 500 MG TAB ONE (13:19)
[2024-02-22] MEDS ORDERED: AZITHROMYCIN 250 MG TAB ONE (13:44)
[2024-02-22] MEDS ORDERED: IBUPROFEN 400 MG TAB ONE (13:44)
--- NOTE | 2024-02-22 13:44 | ER ---
Nurse's Notes [facility] Name: Zaynab Winston Age: 68 yrs Sex: Female : 1955 Arrival Date: 02/22/2024 Time: 10:22 Bed 8 Private MD: Diagnosis: Fever, unspecified;Influenza due to identified novel influenza A virus with other respiratory manifestations;Acute upper respiratory infection, unspecified;Weakness Presentation: 02/21 10:33 Chief complaint: EMS states: Came back from [place] last week feeling ill with a cough. ll1 + low grade fever. Fell last night. L hip pain and pain to L cheek area since. Family noticed she was not as perky as usual today. Stroke scale negative. Elevated BP with EMS, otherwise stable. Coronavirus screen: Client denies travel out of the [place] in the last 14 days. congestion, cough unrelated to allergies, fatigue, fever, headache, Client presents with at least one sign or symptom that may indicate coronavirus-19. Standard/surgical mask placed on the client. Ebola Screen: Patient denies travel to an Ebola-affected area in the 21 days before illness onset. Initial Sepsis Screen: Does the patient meet any 2 criteria? No. Patient's initial sepsis screen is negative. Does the patient have a suspected source of infection? No. Patient's initial sepsis screen is negative. Risk Assessment: Do you want to hurt yourself or someone else? Patient reports no desire to harm self or others. Onset of symptoms was February 15, 2024. 10:33 Method Of Arrival: EMS: [facility] 1 10:33 Acuity: [facility] 3 1 10:43 Care prior to arrival: IV. Mechanism of Injury: Fall. Trauma event details: Injury ll1 occurred in the [facility]. Triage Assessment: 10:37 General: Appears uncomfortable, Behavior is calm, cooperative, appropriate for age, ll1 Reports fever for feeling ill for fatigue for. Pain: Complains of pain in L hip. Neuro: Level of Consciousness is awake, alert, obeys commands, Oriented to person, place, Full function Weakness Reports headache weakness L cheek pain. Respiratory: Reports cough that is. Musculoskeletal: Circulation, motion, and sensation intact. Capillary refill < 3 seconds, in left fingers. toes. Reports pain in L hip and L cheek. Injury Description: Bruise. Trauma Activation: Not Applicable Physician: ED Physician; Name: ; Notified At: ; Arrived At: Physician: General Surgeon; Name: ; Notified At: ; Arrived At: Physician: Radiology; Name: ; Notified At: ; Arrived At: Physician: Respiratory; Name: ; Notified At: ; Arrived At: Physician: Lab; Name: ; Notified At: ; Arrived At: Historical: - Allergies: 10:37 PENICILLINS; ll1 10:37 Tramadol HCl; ll1 - PMHx: 10:37 Diabetes - NIDDM; High Cholesterol; Hypertension; ll1 - Immunization history:: Adult Immunizations up to date. - Infectious Disease History:: Denies. - Immunization history: Last tetanus immunization: - up to date. - Social history:: Smoking status: Patient denies any tobacco usage or history of. Screenin:39 [facility] ED Fall Risk Assessment (Adult) History of falling in the last 3 months, ll1 including since admission Yes- single mechanical fall (1 pt) Confusion or Disorientation No (0 pts) Intoxicated or Sedated No (0 pts) Impaired Gait No (0 pts) Mobility Assist Device Used No (0 pt) Altered Elimination No (0 pt) Score/Fall Risk Level 0 - 2 = Low Risk Maintained a safe environment, Hourly rounding (assess needs \T\ fall precautionary measures) done. Abuse screen: Denies threats or abuse. Nutritional screening: No deficits noted. Tuberculosis screening: No symptoms or risk factors identified. Primary Survey: 10:39 NO uncontrolled hemorrhage observed. A: The client is awake and alert. The airway is ll1 patent. Breathing/Chest: Spontaneous respiratory effort, equal unlabored respirations, breath sounds clear bilaterally, regular pattern, symmetrical chest rise and fall. Circulation: No external hemorrhage present. Regular and strong central pulse, skin warm/dry/normal color. Disability Client is alert. Exposure/Environment: There is no evidence of uncontrolled external bleeding. 14:31 Reassessment Breathing: Spontaneous respiratory effort, equal unlabored respirations, ll1 breath sounds clear bilaterally, regular pattern with symmetrical chest rise and fall. Assessment: 12:13 Reassessment: No changes from previously documented assessment. Patient and/or family ll1 updated on plan of care and expected duration. Pain level reassessed. Patient is alert, oriented x 3, equal unlabored respirations, skin warm/dry/pink. 13:15 Reassessment: No changes from previously documented assessment. Patient and/or family ll1 updated on plan of care and expected duration. Pain level reassessed. Patient is alert, oriented x 3, equal unlabored respirations, skin warm/dry/pink. 13:50 Reassessment: No changes from previously documented assessment. Patient and/or family ll1 updated on plan of care and expected duration. Pain level reassessed. Patient is alert, oriented x 3, equal unlabored respirations, skin warm/dry/pink. 14:20 Reassessment: Reassessment: No changes from previously documented assessment. Patient ll1 and/or family updated on plan of care and expected duration. Pain level reassessed. Vital Signs: 10:33 BP 183 / 89; Pulse 97; Resp 17; Temp 99.9(O); Pulse Ox 96% on R/A; Weight 86.18 kg; ll1 Pain 10/10; 11:30 BP 167 / 79; Pulse 90; Resp 17; Pulse Ox 95% on R/A; ll1 13:23 BP 170 / 80; Pulse 97; Resp 17; Temp 102.3; Pulse Ox 96% on R/A; ll1 14:20 BP 149 / 75; Pulse 83; Resp 17; Pulse Ox 96% on R/A; ll1 14:31 Resp 16; Temp 98.2; Pain 0/10; ll1 10:33 Pain Scale: Adult ll1 14:31 Pain Scale: Adult ll1 [place] Coma Score: 10:39 Eye Response: spontaneous(4). Motor Response: obeys commands(6). Verbal Response: ll1 oriented(5). Total: 15. Trauma Score (Adult): 10:39 Eye Response: spontaneous(1); Verbal Response: oriented(1); Motor Response: obeys ll1 commands(2); Systolic BP: > 89 mm Hg(4); Respiratory Rate: 10 to 29 per min(4); [place] Score: 15; Trauma Score: 12 ED Course: 10:33 Patient arrived in ED. ll1 10:36 Fadi Whitmore MD is Attending Physician. [facility] 10:37 Triage completed. ll1 10:37 Arm band placed on Patient placed in an exam room, on a stretcher. ll1 10:43 Waldemar, Lynsay, RN is Primary Nurse. ll1 10:43 Patient has correct armband on for positive identification. Bed in low position. ll1 Provided Education on: ER procedures and process. Client placed on continuous cardiac and pulse oximetry monitoring. NIBP monitoring applied. 10:44 Maintain EMS IV. Dressing intact. Good blood return noted. Site clean \T\ dry. Gauge \T\ ll 1 site: 18 L FA. Flushed with 10 mL NS IV is patent, is intact, with fluids infusing freely, with good blood return. 10:45 Thermoregulation: warm blanket given to patient. ll1 11:25 Chest Single View XRAY In Process Unspecified. EDMS 11:42 Chest Abd Pelvis Wo Con In Process Unspecified. EDMS 11:43 Head C Spine Mpr Wo Con In Process Unspecified. EDMS 12:01 SARS RAPID Sent. ll1 12:01 Flu Sent. ll1 12:01 Strep Sent. ll1 13:16 Urinalysis w/ reflexes Sent. ll1 13:43 Jose L Schultz DO is Referral Physician. evon 13:52 EKG done, by ED staff, reviewed by Fadi Whitmore MD. em1 14:31 No provider procedures requiring assistance completed. IV discontinued, intact, ll1 bleeding controlled, No redness/swelling at site. Pressure dressing applied. 14:31 Patient maintains SpO2 saturation greater than 95% on room air. ll1 Administered Medications: 12:10 Drug: Famotidine IVP 20 mg IVP once; dilute with 10 mL 0.9% NaCl; give over 2 minutes ll1 Route: IVP; Site: left wrist; 13:48 Follow up: Response: No adverse reaction ll1 13:13 Drug: NS 0.9% IV (30 ml/kg) 30 ml/kg IV at bolus once; Sepsis Protocol; to be given as ll1 a bolus over 90 minutes Route: IV; Rate: bolus; Site: left wrist; 13:49 Follow up: Response: No adverse reaction; IV Status: Completed infusion; IV Intake: ll1 1000ml 13:17 Drug: Rocephin IV 1 grams IV at per protocol once; Given slow IV push per pharmacy ll1 instructions Route: IV; Rate: per protocol; Site: left wrist; 13:48 Follow up: Response: No adverse reaction; IV Status: Completed infusion; IV Intake: [id number] 13:23 Drug: Acetaminophen PO 1000 mg PO once Route: PO; ll1 13:49 Follow up: Response: No adverse reaction ll1 13:48 Drug: Oseltamivir PO 75 mg PO once Route: PO; ll1 15:23 Follow up: Response: No adverse reaction ll1 13:48 Drug: AZITHromycin PO 500 mg PO once Route: PO; ll1 15:23 Follow up: Response: No adverse reaction ll1 14:30 Drug: Ibuprofen PO 800 mg PO once Route: PO; ll1 15:23 Follow up: Response: No adverse reaction ll1 Medication: 10:43 VIS not applicable for this client. ll1 Intake: 13:48 IV: 10ml; Total: 10ml. ll1 13:49 IV: 1000ml; Total: 1010ml. ll1 14:31 PO: 0ml; IV: 1000ml; Total: 2010ml. ll1 Output: 14:31 Urine: 40ml (Voided); Total: 40ml. ll1 Outcome: 13:44 Discharge ordered by . evon 14:31 Patient left the ED. ll1 14:31 Discharged to home via wheelchair, ll1 14:31 Condition: stable 14:31 Discharge instructions given to patient, family, Instructed on discharge instructions, follow up and referral plans. medication usage, Demonstrated understanding of instructions, follow-up care, medications, Prescriptions given X 3, 14:31 Patient's length of stay was not longer than 2 hours. ll1 Signatures: Dispatcher [employer] EDMS Fadi Whitmore MD MD cha Martinez, Eric Chavo Christine RN RN ll1 Corrections: (The following items were deleted from the chart) 12:12 10:33 BP 183 / 89; Pulse 97bpm; Resp 17bpm; Pulse Ox 96% RA; Temp 99.9F Oral; Pain ll1 12/08, Adult; ll1 15:21 14:20 Reassessment: ll1 ll1 15:21 14:20 Reassessment: ll1 ll1
--- NOTE | 2024-02-22 13:44 | EDPHYS ---
Physician Documentation [facility] Name: Zaynab Winston Age: 68 yrs Sex: Female : 1955 Arrival Date: 02/22/2024 Time: 10:22 Bed 8 Private MD: ED Physician Fadi Whitmore HPI: 02/21 13:40 This 68 yrs old Female presents to ER via EMS with complaints of Fever, Fall evon Injury. 13:40 The patient reports fever, that was measured at 102 degrees Fahrenheit. Onset: The evon symptoms/episode began/occurred 2 day(s) ago. Modifying factors: The patient has recently traveled, to [place]. Associated signs and symptoms: Pertinent positives: chills, cough. Severity of symptoms: At their worst the symptoms were moderate in the emergency department the symptoms have improved mildly. The patient has experienced similar episodes in the past, a few times. Historical: - Allergies: 10:37 PENICILLINS; ll1 10:37 Tramadol HCl; ll1 - PMHx: 10:37 Diabetes - NIDDM; High Cholesterol; Hypertension; ll1 - Immunization history:: Adult Immunizations up to date. - Infectious Disease History:: Denies. - Immunization history: Last tetanus immunization: - up to date. - Social history:: Smoking status: Patient denies any tobacco usage or history of. ROS: 13:41 Eyes: Negative for injury, pain, redness, and discharge, ENT: Negative for injury, evon pain, and discharge, Neck: Negative for injury, pain, and swelling, Cardiovascular: Negative for chest pain, palpitations, and edema, Abdomen/GI: Negative for abdominal pain, nausea, vomiting, diarrhea, and constipation, Back: Negative for injury and pain, : Negative for injury, bleeding, discharge, and swelling, MS/Extremity: Negative for injury and deformity, Skin: Negative for injury, rash, and discoloration, Neuro: Negative for headache, weakness, numbness, tingling, and seizure, Psych: Negative for depression, anxiety, suicide ideation, homicidal ideation, and hallucinations, Allergy/Immunology: Negative for hives, rash, and allergies, Endocrine: Negative for neck swelling, polydipsia, polyuria, polyphagia, and marked weight changes, Hematologic/Lymphatic: Negative for swollen nodes, abnormal bleeding, and unusual bruising, 13:41 Constitutional: Positive for body aches, chills, fatigue, fever, malaise, poor PO intake, 13:41 Respiratory: Positive for cough, "sounds productive", Exam: 13:41 Head/Face: Normocephalic, atraumatic. Eyes: Pupils equal round and reactive to light, evon extra-ocular motions intact. Lids and lashes normal. Conjunctiva and sclera are non-icteric and not injected. Cornea within normal limits. Periorbital areas with no swelling, redness, or edema. ENT: Nares patent. No nasal discharge, no septal abnormalities noted. Tympanic membranes are normal and external auditory canals are clear. Oropharynx with no redness, swelling, or masses, exudates, or evidence of obstruction, uvula midline. Mucous membranes moist. Neck: Trachea midline, no thyromegaly or masses palpated, and no cervical lymphadenopathy. Supple, full range of motion without nuchal rigidity, or vertebral point tenderness. No Meningismus. Chest/axilla: Normal chest wall appearance and motion. Nontender with no deformity. No lesions are appreciated. Cardiovascular: Regular rate and rhythm with a normal S1 and S2. No gallops, murmurs, or rubs. Normal PMI, no JVD. No pulse deficits. Respiratory: Lungs have equal breath sounds bilaterally, clear to auscultation and percussion. No rales, rhonchi or wheezes noted. No increased work of breathing, no retractions or nasal flaring. Abdomen/GI: Soft, non-tender, with normal bowel sounds. No distension or tympany. No guarding or rebound. No evidence of tenderness throughout. Back: No spinal tenderness. No costovertebral tenderness. Full range of motion. Female : Normal external genitalia. Skin: Warm, dry with normal turgor. Normal color with no rashes, no lesions, and no evidence of cellulitis. MS/ Extremity: Pulses equal, no cyanosis. Neurovascular intact. Full, normal range of motion., bilateral aka Neuro: Awake and alert, GCS 15, oriented to person, place, time, and situation. Cranial nerves II-XII grossly intact. Motor strength 5/5 in all extremities. Sensory grossly intact. Cerebellar exam normal. Normal gait. Psych: Awake, alert, with orientation to person, place and time. Behavior, mood, and affect are within normal limits. 13:41 Constitutional: The patient appears febrile, 13:58 ECG was reviewed by the Attending Physician. [facility] Vital Signs: 10:33 BP 183 / 89; Pulse 97; Resp 17; Temp 99.9(O); Pulse Ox 96% on R/A; Weight 86.18 kg; ll1 Pain 10/10; 11:30 BP 167 / 79; Pulse 90; Resp 17; Pulse Ox 95% on R/A; ll1 13:23 BP 170 / 80; Pulse 97; Resp 17; Temp 102.3; Pulse Ox 96% on R/A; ll1 14:20 BP 149 / 75; Pulse 83; Resp 17; Pulse Ox 96% on R/A; ll1 14:31 Resp 16; Temp 98.2; Pain 0/10; ll1 10:33 Pain Scale: Adult ll1 14:31 Pain Scale: Adult ll1 [place] Score: 10:39 Eye Response: spontaneous(4). Motor Response: obeys commands(6). Verbal Response: ll1 oriented(5). Total: 15. Trauma Score (Adult): 10:39 Eye Response: spontaneous(1); Verbal Response: oriented(1); Motor Response: obeys ll1 commands(2); Systolic BP: > 89 mm Hg(4); Respiratory Rate: 10 to 29 per min(4); [place] Score: 15; Trauma Score: 12 MDM: 10:36 Medical Screening Exam initiated [facility] 13:42 Data reviewed: vital signs, nurses notes, lab test result(s), EKG, radiologic studies. [facility] 02/21 11:15 Order name: Blood Culture Adult (2) [facility] 02/21 11:15 Order name: CBC with Diff; Complete Time: 13:37 [facility] 02/21 11:15 Order name: CMP; Complete Time: 13:37 [facility] 02/21 11:15 Order name: Lactate w/ 2H reflex if indic.; Complete Time: 13:37 [facility] 02/21 11:15 Order name: Protime (+inr); Complete Time: 13:37 [facility] 02/21 11:15 Order name: Ptt, Activated; Complete Time: 13:37 [facility] 02/21 11:15 Order name: Urinalysis w/ reflexes [facility] 02/21 11:15 Order name: LFT's; Complete Time: 13:37 [facility] 02/21 11:15 Order name: Magnesium; Complete Time: 13:37 [facility] 02/21 11:15 Order name: NT PRO-BNP; Complete Time: 13:37 [facility] 02/21 11:15 Order name: Troponin HS; Complete Time: 13:37 [facility] 02/21 11:15 Order name: SARS RAPID; Complete Time: 13:37 [facility] 02/21 11:15 Order name: Flu; Complete Time: 13:37 [facility] 02/21 11:15 Order name: Strep [facility] 02/21 12:37 Order name: Throat Culture [facility] 02/21 11:15 Order name: Chest Single View XRAY; Complete Time: 13:37 [facility] 02/21 11:21 Order name: Chest Abd Pelvis Wo Con; Complete Time: 13:37 [facility] 02/21 11:32 Order name: Head C Spine Mpr Wo Con; Complete Time: 13:37 [facility] 02/21 11:15 Order name: Cardiac monitoring; Complete Time: 13:49 [facility] 02/21 11:15 Order name: EKG - Nurse/Tech; Complete Time: 13:49 [facility] 02/21 11:15 Order name: IV Saline Lock - Large Bore; Complete Time: 12:00 [facility] 02/21 11:15 Order name: Labs collected and sent; Complete Time: 12:00 [facility] 02/21 11:15 Order name: O2 Per Protocol; Complete Time: 11:35 [facility] 02/21 11:15 Order name: O2 Sat Monitoring; Complete Time: 11:35 [facility] 02/21 11:15 Order name: Vital Signs; Complete Time: 11:35 [facility] 02/21 11:15 Order name: IV Saline Lock; Complete Time: 12:13 [facility] EC:58 Rate is 91 beats/min. Rhythm is regular. QRS [place] is Normal. [place] interval is normal. QRS evon interval is normal. QT interval is normal. No Q waves. T waves are Normal. No ST changes noted. Clinical impression: NSR w/ Non-specific ST/T Changes and No evidence of ischemia. Interpreted by me. Reviewed by me. Administered Medications: 12:10 Drug: Famotidine IVP 20 mg IVP once; dilute with 10 mL 0.9% NaCl; give over 2 minutes ll1 Route: IVP; Site: left wrist; 13:48 Follow up: Response: No adverse reaction ll1 13:13 Drug: NS 0.9% IV (30 ml/kg) 30 ml/kg IV at bolus once; Sepsis Protocol; to be given as ll1 a bolus over 90 minutes Route: IV; Rate: bolus; Site: left wrist; 13:49 Follow up: Response: No adverse reaction; IV Status: Completed infusion; IV Intake: ll1 1000ml 13:17 Drug: Rocephin IV 1 grams IV at per protocol once; Given slow IV push per pharmacy ll1 instructions Route: IV; Rate: per protocol; Site: left wrist; 13:48 Follow up: Response: No adverse reaction; IV Status: Completed infusion; IV Intake: [id number] 13:23 Drug: Acetaminophen PO 1000 mg PO once Route: PO; ll1 13:49 Follow up: Response: No adverse reaction ll1 13:48 Drug: Oseltamivir PO 75 mg PO once Route: PO; ll1 15:23 Follow up: Response: No adverse reaction ll1 13:48 Drug: AZITHromycin PO 500 mg PO once Route: PO; ll1 15:23 Follow up: Response: No adverse reaction ll1 14:30 Drug: Ibuprofen PO 800 mg PO once Route: PO; ll1 15:23 Follow up: Response: No adverse reaction ll1 Disposition Summary: 02/22/24 13:44 Discharge Ordered Notes: Location: Home evon Problem: new evon Symptoms: have improved evon Condition: Stable evon Diagnosis - Fever, unspecified evon - Influenza due to identified novel influenza A virus with other respiratory evon manifestations - Acute upper respiratory infection, unspecified evon - Weakness evon Followup: evon - With: Private Physician - When: 2 - 3 days - Reason: Recheck today's complaints, Continuance of care, Re-evaluation by your physician Followup: evon - With: Jose L Schultz DO - When: 2 - 3 days - Reason: Recheck today's complaints, Re-evaluation by your physician Discharge Instructions: - Discharge Summary Sheet evon - Fever, Adult evon - Influenza, Adult evon - Weakness evon - Cool Mist Vaporizer evon - Upper Respiratory Infection, Adult, Uozl-cm-Pdef evon - Influenza, Adult, Hqiu-ty-Wptw evon - Cough, Adult, Gvmg-yg-Trqg evon - Weakness, Krvx-hn-Blte evon - Cough, Adult [facility] Forms: - Medication Reconciliation Form evon - Antibiotic Education evon - Prescription Opioid Use evon - Patient Portal Instructions [facility] - Leadership Thank You Letter [facility] Prescriptions: - Tessalon Perles 100 mg Oral capsule - take 2 capsule ORAL route every 8 hours As needed; 30 capsule; Refills: 0, [facility] Product Selection Permitted - Tamiflu 75 mg Oral capsule - take 1 tablet ORAL route every 12 hours for 5 days; 10 tablet; Refills: 0, [facility] Product Selection Permitted - Zithromax 500 mg Oral tablet - take 1 tablet ORAL route once daily for 5 days begin 02/23/24; 5 tablet; [facility] Refills: 0, Product Selection Permitted Signatures: Dispatcher [employer] EDMS Fadi Whitmore MD MD cha Lewis, Lynsay, RN RN ll1 Corrections: (The following items were deleted from the chart) 11:16 11:15 BLOOD CULTURE*+BA.LAB.BRZ ordered. EDMS EDMS 11:16 11:15 CBC+H.LAB.BRZ ordered. EDMS EDMS 11:16 11:15 COMPREHENSIVE METABOLIC PANEL+C.LAB.BRZ ordered. EDMS EDMS 11:16 11:15 LACTATE+C.LAB.BRZ ordered. EDMS EDMS 11:16 11:15 PROTIME (+INR)+COAG.LAB.BRZ ordered. EDMS EDMS 11:16 11:15 PTT, ACTIVATED+COAG.LAB.BRZ ordered. EDMS EDMS 11:16 11:15 Urinalysis+U.LAB.BRZ ordered. EDMS EDMS 11:16 11:15 BASIC METABOLIC PANEL+C.LAB.BRZ ordered. EDMS EDMS 11:16 11:15 HEPATIC FUNCTION+C.LAB.BRZ ordered. EDMS EDMS 11:16 11:15 MAGNESIUM+C.LAB.BRZ ordered. EDMS EDMS 11:16 11:15 PROBNP+C.LAB.BRZ ordered. EDMS EDMS 11:16 11:15 Troponin High Sensitivity+C.LAB.BRZ ordered. EDMS EDMS 11:16 11:15 SARS-COV-2 Antigen Rapid+I.LAB.BRZ ordered. EDMS EDMS 11:16 11:15 Influenza Screen (A \\T\\ B)+BA.LAB.BRZ ordered. EDMS EDMS 11:16 11:15 Group A Streptococcus Rapid Sc+BA.LAB.BRZ ordered. EDMS EDMS 11:16 11:16 Head C Spine Cap Wo Con+CT.RAD.BRZ ordered. EDMS EDMS 13:49 11:15 Veronica ordered. [facility] ll1
[2024-02-22] MEDS ORDERED: OSELTAMIVIR 75 MG CAP PO ONE (13:45)
[2024-02-22 14:08] LABS: Sqamous Epithelial <5 /HPF (None Seen); Urine Bacteria None Seen /HPF (<20); Urine Culture Reflex Order NOT NEEDED; Urine Microscopic Reflex YN ORDER UMIC; Urine Mucus Slight /HPF (None Seen); Urine WBC <5 /HPF (<5)
[2024-02-22 14:11] LABS: Urine Bilirubin Negative (Negative); Urine Clarity Clear (Clear); Urine Color Yellow (Yellow); Urine Glucose Negative (Negative); Urine Ketones Negative (Negative)
[2024-02-22 14:12] LABS: Urine Ascorbic Acid Negative (Negative); Urine Blood Trace (Negative); Urine Nitrite Negative (Negative); Urine Protein TRACE (Negative); Urine Urobilinogen Normal (Normal)
[2024-02-22 14:38] VITALS: O2SAT 96
[2024-02-22 14:40] VITALS: BP 149/75
[2024-02-22 14:42] VITALS: TEMP 98.2
--- NOTE | 2024-02-25 13:43 | EKG ---
Test Date: 2024-02-22 Test Time: 13:49:26 Slide Maker: ARSEN MEASUREMENT RESULTS: Intervals: Rate: 91 [place]: 134 QRSD: 88 QT: 378 QTc: 464 [place]: P: 33 [place]: 134 QRS: 37 T: 63 INTERPRETIVE STATEMENTS: Normal sinus rhythm with sinus arrhythmia Nonspecific ST abnormality Abnormal ECG Compared to ECG 03/13/2018 18:12:54 ST (T wave) deviation now present Prolonged QT interval no longer present Electronically Signed On 02-25-24 13:37:53 MINISTER by Devyn Damon
== END 2024-02-22 14:31 | disposition home or self-care (01) ==
LOC: ER 10:22
DX: J09.X2 Influenza due to identified novel influenza A virus with other respiratory manifestations (principal); R50.9 Fever, unspecified; R53.1 Weakness; W19.XXXA Unspecified fall, initial encounter; E11.9 Type 2 diabetes mellitus without complications; I10 Essential (primary) hypertension; E78.00 Pure hypercholesterolemia, unspecified; Z11.52 Encounter for screening for COVID-19; Z88.0 Allergy status to penicillin; Z88.5 Allergy status to narcotic agent
CPT/HCPCS: 96365; 93005; 87040 ×2; 87070; 85025; 81001; 36415; 83735; 85610; 87081; 83605; 85730; 82248; 84484; 80053; 83880; 87804 ×2; 70450; 71250; 72125; 74176; 71045; 96375; 99285; 87811; J7030; J0696

== ENCOUNTER 2024-04-29 16:43 | Emergency (ER) | payer OTHER ==
--- NOTE | 2024-04-29 18:54 | RAD REPORT ---
EXAMINATION: Pelvis CLINICAL INDICATION: Female, 68 years old. GLF COMPARISON: No prior exam. FINDINGS: No acute fracture. Fusion hardware in the lower spine. No malalignment/dislocation. No significant focal degenerative change. Other: n/a IMPRESSION: No acute osseous abnormality.
--- NOTE | 2024-04-29 18:55 | RAD REPORT ---
EXAMINATION: Shoulder Right 2+ Views CLINICAL INDICATION: Female, 68 years old. GLF RIGHT COMPARISON: No prior exam. FINDINGS: No acute fracture. No malalignment/dislocation. Mild right AC joint and glenohumeral joint degenerative changes. Other: n/a IMPRESSION: No acute osseous abnormality.
--- NOTE | 2024-04-29 18:55 | RAD REPORT ---
EXAM: Ribs Bilateral HISTORY: 68 years Female PAIN COMPARISON: None. FINDINGS: LUNGS/PLEURA: The lungs are clear. No pleural effusions or pneumothorax. No pulmonary edema. CARDIAC/MEDIASTINUM: The cardiac silhouette is within normal limits. UPPER ABDOMEN: No significant abnormality. BONES: No acute abnormality. No displaced rib fractures identified. ACDF in the cervical spine. LINES/TUBES/OTHER: N/A IMPRESSION: No displaced rib fractures. No acute process in the chest.
--- NOTE | 2024-04-29 18:55 | RAD REPORT ---
EXAM: Chest Single View HISTORY: 68 years Female GLF COMPARISON: 02/22/2024 FINDINGS: LUNGS/PLEURA: The lungs are clear. No pleural effusions or pneumothorax. No pulmonary edema. CARDIAC/MEDIASTINUM: The cardiac silhouette is within normal limits. UPPER ABDOMEN: No significant abnormality. BONES: No acute abnormality. LINES/TUBES/OTHER: N/A IMPRESSION: No evidence of acute cardiopulmonary disease.
--- NOTE | 2024-04-29 18:58 | EDPHYS ---
Physician Documentation [facility] Name: Zaynab Winston Age: 68 yrs Sex: Female : 1955 Arrival Date: 04/29/2024 Time: 16:43 Bed 14 Private MD: ED Physician Otoniel Schulz HPI: 04/29 17:22 This 68 yrs old Female presents to ER via Ambulatory with complaints of Fall ec2 Injury, Shoulder Pain. 17:22 Patient arrives today for evaluation of right-sided body pain. Patient complain of a ec2 ground-level fall which occurred several days ago, reports right shoulder pain, right rib pain as well as right hip pain. No LOC, no head strike, no neck pain.. Historical: - Allergies: 17:09 PENICILLINS; ss 17:09 Tramadol HCl; ss - PMHx: 17:09 Diabetes - NIDDM; High Cholesterol; Hypertension; ss - Immunization history:: Client reports receiving the 2nd dose of the Covid vaccine. - Infectious Disease History:: Denies. - Social history:: Smoking status: Patient denies any tobacco usage or history of. ROS: 17:22 Constitutional: as per hpi ec2 Exam: 17:22 Constitutional: GEN: NAD Head: atraumatic Eyes: EOMI Ears: External ears are ec2 normal. CV: regular rate LUNGS: no respiratory distress ABD: non-distended SKIN: no evidence of rashes MSK: Reproducible right proximal humerus TTP without deformities, good range of motion, right hip TTP, overlying hematoma noted. No significant swelling or induration appreciated. Right rib wall TTP Vital Signs: 17:07 BP 150 / 74; Pulse 74; Resp 16; Temp 98.3(O); Pulse Ox 97% on R/A; Weight 61.23 kg; ss Height 5 ft. 2 in. ; Pain 8/10; 17:45 BP 139 / 75; Pulse 66; Resp 14; Pulse Ox 99% ; cm10 19:08 BP 138 / 83; Pulse 68; Resp 15; Pulse Ox 99% on R/A; cm10 17:07 Body Mass Index 24.69 (61.23 kg, 157.48 cm) ss 17:07 Pain Scale: Adult ss MDM: 17:00 Medical Screening Exam initiated ec2 17:22 Data reviewed: vital signs, nurses notes. ED course: Patient arrives today from [facility] ec2 pain after GLF that occurred several days ago. Examination is revealing for reproducible TTP. Will obtain radiographs. Suspect contusions, doubt fractures or displacements.. 18:57 ED course: Radiographs negative for acute traumatic pathology. Will discharge home. ec2 Return precautions given.. 04/29 17:12 Order name: CXR XRAY; Complete Time: 18:57 ec2 04/29 17:12 Order name: Shoulder Right (2 View) XRAY; Complete Time: 18:57 ec2 04/29 17:12 Order name: Pelvis XRAY; Complete Time: 18:57 ec2 04/29 17:12 Order name: Ribs Bilateral XRAY; Complete Time: 18:57 ec2 Administered Medications: No medications were administered Disposition Summary: 04/29/24 18:57 Discharge Ordered Notes: Location: Home ec2 Condition: Stable ec2 Diagnosis - Pain in right shoulder ec2 - Pain in right hip ec2 - Sprain of ribs ec2 Followup: ec2 - With: Private Physician - When: - Reason: Re-evaluation by your physician Discharge Instructions: - Discharge Summary Sheet ec2 - Shoulder Pain, Ljrg-gu-Pkut ec2 Forms: - Medication Reconciliation Form ec2 - Antibiotic Education ec2 - Prescription Opioid Use ec2 - Patient Portal Instructions ec2 - Leadership Thank You Letter ec2 Prescriptions: - methocarbamol 500 mg Oral tablet - take 1 tablet ORAL route 4 times per day; 20 tablet; Refills: 0, Product ec2 Selection Permitted Signatures: Dispatcher [employer] Regina Felder RN RN ss Corral, Edwin, MD MD ec2 Corrections: (The following items were deleted from the chart) 17:13 17:13 Ribs Bilateral+RAD.RAD.BRZ ordered. EDMS EDMS
--- NOTE | 2024-04-29 18:58 | ER ---
Nurse's Notes [facility] Name: Zaynab Winston Age: 68 yrs Sex: Female : 1955 Arrival Date: 04/29/2024 Time: 16:43 Bed 14 Private MD: Diagnosis: Pain in right shoulder;Pain in right hip;Sprain of ribs Presentation: 04/29 17:07 Chief complaint: Patient states: Fall from standing 6 days ago. Pt c/o worsening pain ss to R shoulder, back and R lateral chest wall. Coronavirus screen: Client denies travel out of the [place] in the last 14 days. Ebola Screen: Patient denies exposure to infectious person. Patient denies travel to an Ebola-affected area in the 21 days before illness onset. Initial Sepsis Screen: Does the patient meet any 2 criteria? No. Patient's initial sepsis screen is negative. Does the patient have a suspected source of infection? No. Patient's initial sepsis screen is negative. Risk Assessment: Do you want to hurt yourself or someone else? Patient reports no desire to harm self or others. Onset of symptoms was April 25, 2024. 17:07 Method Of Arrival: Ambulatory ss 17:07 Acuity: CHAS 3 ss Historical: - Allergies: 17:09 PENICILLINS; ss 17:09 Tramadol HCl; ss - PMHx: 17:09 Diabetes - NIDDM; High Cholesterol; Hypertension; ss - Immunization history:: Client reports receiving the 2nd dose of the Covid vaccine. - Infectious Disease History:: Denies. - Social history:: Smoking status: Patient denies any tobacco usage or history of. Screenin:52 [facility] ED Fall Risk Assessment (Adult) History of falling in the last 3 months, cm10 including since admission Yes- single mechanical fall (1 pt) Confusion or Disorientation No (0 pts) Intoxicated or Sedated No (0 pts) Impaired Gait No (0 pts) Mobility Assist Device Used No (0 pt) Altered Elimination No (0 pt) Score/Fall Risk Level 0 - 2 = Low Risk Oriented to surroundings, Maintained a safe environment, Hourly rounding (assess needs \T\ fall precautionary measures) done. Abuse screen: Denies threats or abuse. Denies injuries from another. Nutritional screening: No deficits noted. Tuberculosis screening: No symptoms or risk factors identified. Assessment: 17:30 General: Appears in no apparent distress. uncomfortable, Behavior is calm, cooperative. cm10 Pain: Complains of pain in anterior aspect of right shoulder and right leg. Pain: Pain currently is 8 out of 10 on a pain scale. Neuro: No deficits noted. Level of Consciousness is awake, alert, obeys commands, Oriented to person, place, time, situation, Appropriate for age. Respiratory: No deficits noted. Airway is patent Respiratory effort is even, unlabored, Respiratory pattern is regular, symmetrical. Musculoskeletal: Reports pain in right arm. 19:09 Reassessment: Patient appears in no apparent distress at this time. Patient and/or cm10 family updated on plan of care and expected duration. Pain level reassessed. Patient is alert, oriented x 3, equal unlabored respirations, skin warm/dry/pink. Vital Signs: 17:07 BP 150 / 74; Pulse 74; Resp 16; Temp 98.3(O); Pulse Ox 97% on R/A; Weight 61.23 kg; ss Height 5 ft. 2 in. ; Pain 8/10; 17:45 BP 139 / 75; Pulse 66; Resp 14; Pulse Ox 99% ; cm10 19:08 BP 138 / 83; Pulse 68; Resp 15; Pulse Ox 99% on R/A; cm10 17:07 Body Mass Index 24.69 (61.23 kg, 157.48 cm) ss 17:07 Pain Scale: Adult ss ED Course: 16:47 Patient arrived in ED. ts1 16:52 Otoniel Schulz MD is Attending Physician. ec2 17:09 Triage completed. ss 17:09 Arm band placed on left wrist. ss 17:11 Rebeca Walton, RN is Primary Nurse. cm10 17:52 Patient has correct armband on for positive identification. Bed in low position. Call cm10 light in reach. Side rails up X2. Provided Education on: ER process and procedures.. Pulse ox on. NIBP on. 18:39 CXR XRAY In Process Unspecified. EDMS 18:39 Shoulder Right (2 View) XRAY In Process Unspecified. EDMS 18:39 Pelvis XRAY In Process Unspecified. EDMS 18:39 Ribs Bilateral XRAY In Process Unspecified. EDMS 19:09 No provider procedures requiring assistance completed. Patient did not have IV access cm10 during this emergency room visit. Administered Medications: No medications were administered Medication: 17:52 VIS not applicable for this client. cm10 Outcome: 18:57 Discharge ordered by . ec2 19:09 Discharged to home ambulatory, with family, cm10 19:09 Condition: good 19:09 Discharge instructions given to patient, Instructed on discharge instructions, follow up and referral plans. medication usage, Demonstrated understanding of instructions, follow-up care, medications, Prescriptions given X 1, 19:09 Patient left the ED. cm10 Signatures: Dispatcher [employer] EDRegina Palumbo, RN RN ss Melissa Guy PAS PAS ts1 Rebeca Walton RN RN cm10 Otoniel Schulz MD MD ec2
[2024-04-29 19:14] VITALS: TEMP 98.3
[2024-04-29 19:15] VITALS: O2SAT 99
[2024-04-29 19:17] VITALS: BP 138/83
== END 2024-04-29 19:09 | disposition home or self-care (01) ==
LOC: ER 16:43
DX: M25.511 Pain in right shoulder (principal); M25.551 Pain in right hip; S23.41XA Sprain of ribs, initial encounter; W18.30XA Fall on same level, unspecified, initial encounter
CPT/HCPCS: 71045; 71110; 72170; 99283